=== PATIENT | female | born 1930 | race Caucasian/White ===

== ENCOUNTER 2017-08-29 10:15 | Observation (INO) ==
[2017-08-29] MEDS ORDERED: methylPREDNISolone 125 MG/2 ML VIAL IVP ONE (10:27)
[2017-08-29] MEDS ORDERED: Ipratropium/Albuterol Neb 3 ML IH ONE (10:27)
[2017-08-29 10:49] LABS: Basophils % 0.3 %; Eosinophils % 0.3 %; Hematocrit 33.9 % (35.3-44.9); Hemoglobin 11.3 g/dL (11.5-15.4); Immature Granulocytes % 0.5 % (0-4); Lymphocytes # 0.4 K/mcL (0.6-4.6); Mean Corpuscular HGB Conc 33.3 g/dL (31.6-35.5); Mean Corpuscular Hemoglobin 29.8 pg (28.0-33.3); Mean Corpuscular Volume 89.4 fL (83.0-100.0); Mean Platelet Volume 8.3 fL (9.4-12.4); Monocytes # 0.5 K/mcL (0.0-1.3); Neutrophils # 6.3 K/mcL (1.6-8.9); Platelet Count 190 K/mcL (140-400); Red Blood Count 3.79 M/mcL (3.82-4.97); Red Cell Distribution Width 13.4 % (11.5-14.5); Segmented Neutrophils % 85.9 %
[2017-08-29 10:58] LABS: Activated Partial Thrombo Time 44.6 Seconds (26.0-36.0)
[2017-08-29 11:02] LABS: BUN/Creatinine Ratio 21 (6-26); Blood Urea Nitrogen 13 mg/dL (8-23); Calcium 8.6 mg/dL (8.6-10.3); Carbon Dioxide 27 mEq/L (23-29); Chloride 97 mEq/L (98-107); Glucose 146 mg/dL (70-105); Osmolality,Calculated 277 (280-300); Potassium 3.4 mEq/L (3.5-5.1); Sodium 132 mEq/L (136-145); eGFR For African Americans > 60 (> 60); eGFR For Non-African Americans > 60 (> 60)
--- NOTE | 2017-08-29 12:04 | Emergency Department Note ---
Disposition Clinical Impression: Hypokalemia, Acute exacerbation of chronic obstructive airways disease Disposition: Admitted As Inpatient Condition: Fair Time of Disposition: 13:32 SOB HPI - General Chief Complaint: ED Shortness of Breath/Dyspnea Stated Complaint: AYAAN Time Seen by Provider: 08/29/17 10:22 Source: patient, family Limitations: no limitations Nursing Notes Reviewed: Yes Vital Signs Reviewed: Yes - History of Present Illness Patient presents to the ED with the chief complaint of shortness of breath. Onset was a few days ago, gradually worsening. States she was told she has a history of COPD due to her age, but otherwise had not smoked and does not live in a smoking household. Denies any pain or swelling in her legs. No history of DVT or PE. No history of CHF. States she takes medicine for high blood pressure, not so otherwise pretty healthy. States 3 days ago she had some nasal congestion and feels like it is moving into her chest. No fever. Mildly productive cough. No chest pain. - Related Data Home Medications Medication Instructions Recorded Confirmed Labetalol [Trandate] 150 mg PO QAM 07/22/15 08/29/17 Labetalol [Trandate] 300 mg PO QPM 07/22/15 08/29/17 Lisinopril [Zestril] 40 mg PO BID 07/22/15 08/29/17 Albuterol Sulfate [Proair Hfa] 2 puff IH Q4H PRN 03/31/16 08/29/17 Clopidogrel [Plavix] 75 mg PO DAILY 03/31/16 08/29/17 Budesonide/Formoterol 160/4.5 2 puff IH BIDR PRN 07/20/16 08/29/17 [Symbicort 160/4.5] Levothyroxine [Synthroid] 25 mcg PO 0630 07/20/16 08/29/17 Loratadine [Claritin] 10 mg PO DAILY 07/20/16 08/29/17 Potassium Chloride [Klor-Con 10] 40 meq PO DAILY 07/20/16 08/29/17 cloNIDine HCl [CloNIDine HCl] 0.1 mg PO BID 07/20/16 08/29/17 hydrALAZINE [HydrALAZINE] 20 mg PO TID 07/20/16 08/29/17 Calcium Carbonate [Calcium] 1,200 mg PO DAILY 08/29/17 08/29/17 Multivit-Min/Iron/Folic/Lutein 1 each PO DAILY 08/29/17 08/29/17 [Centrum Silver Women Tablet] amLODIPine [Norvasc] 5 mg PO BID 08/29/17 08/29/17 Previous Rx's Medication Instructions Recorded Aspirin Enteric Coated [Aspirin EC] 325 mg PO DAILY #30 tablet. 07/24/15 Atorvastatin [Lipitor] 80 mg PO HS #30 tablet 07/24/15 Allergies Allergy/AdvReac Type Severity Reaction Status Date / Time No Known Allergies Allergy Verified 08/29/17 10:17 All systems ED: reviewed and negative except as stated. Constitutional: Denies: fever ENT ED: Denies: ear pain Cardiovascular: Reports: chest pain, dyspnea on exertion Respiratory: Reports: cough, dyspnea, wheezes Genitourinary: Denies: dysuria Musculoskeletal: Denies: back pain Past Medical History - Past Medical History Attestation: Yes The following information was validated with the patient. Source: patient Medical history: Reports: COPD, CVA, hyperlipidemia, hypertension, thyroid disease Surgical history: Reports: ureteral stent, other Psychiatric history: Reports: no psych history DESKTOP SUPPORT ASSOCIATE history: Reports: no DESKTOP SUPPORT ASSOCIATE history - Social History Smoking Status: Never smoker Smokeless Tobacco Status: No Alcohol use: Reports: none Drug use: Reports: none Physical Exam - General Limitations: no limitations General appearance: alert, in no apparent distress - Head Head exam: atraumatic, normocephalic, normal inspection - Eye Eye exam: Present: normal appearance, PERRL, EOMI - Neck Neck exam: Present: normal inspection, full ROM, trachea midline - Chest Chest inspection: Present: normal inspection, symmetric chest wall rise - Respiratory Respiratory exam: Present: respiratory distress (mild), wheezes, accessory muscle use (Pursed lip breathing). Absent: normal lung sounds bilaterally, stridor - Cardiovascular Cardiovascular exam: Present: regular rate, normal rhythm, normal heart sounds - Abdominal Exam Abdominal exam: Present: soft, Non-Tender. Absent: tenderness, distention, guarding, rebound, rigidity - Extremities Exam Extremities exam: Present: normal inspection, full ROM. Absent: tenderness, pedal edema - Back Exam Back exam: Present: normal inspection, full ROM. Absent: tenderness - Neurological Exam Neurological exam: Present: alert, oriented X3 - Psychiatric Psychiatric exam: Present: normal affect, normal mood - Skin Skin exam: Present: warm, dry, intact, normal color Course Course Narrative: Patient presenting with shortness of breath. COPD versus pneumonia versus CHF. Labs, chest x-ray steroids. - Reevaluation(s) Reevaluation #1: Patient improved slightly after breathing treatments, however, still having some pursed lip breathing. We will admit to hospital service for a COPD exacerbation. Also mildly hypokalemic and hyponatremic. We will also give a dose Levaquin. Vital Signs Temperature 98.4 F 08/29/17 10:17 Pulse Rate 93 08/29/17 10:17 Respiratory Rate 22 08/29/17 10:17 Blood Pressure 186/74 08/29/17 10:17 O2 Sat by Pulse Oximetry 97 08/29/17 10:17 Temperature 97.9 F 08/29/17 14:00 Pulse Rate 77 08/29/17 14:00 Respiratory Rate 17 08/29/17 14:00 Blood Pressure 155/76 08/29/17 14:00 O2 Sat by Pulse Oximetry 93 08/29/17 14:00 Oxygen Delivery Oxygen Delivery Nasal Cannula Shortness of Breath/Dyspnea - Medical Records Medical records reviewed: Yes I reviewed the patient's medical records. - Lab Data Lab results reviewed: Yes I reviewed the patient's lab results. Result diagrams: 08/29/17 10:37 08/29/17 10:37 Lab Results 08/29/17 08/29/17 08/29/17 Range/Units 10:37 10:37 10:37 WBC 7.3 (4.3-11.1) K/mcL RBC 3.79 L (3.82-4.97) M/mcL Hgb 11.3 L (11.5-15.4) g/dL Hct 33.9 L (35.3-44.9) % MCV 89.4 (83.0-100.0) fL MCH 29.8 (28.0-33.3) pg MCHC 33.3 (31.6-35.5) g/dL RDW 13.4 (11.5-14.5) % Plt Count 190 (140-400) K/mcL MPV 8.3 L (9.4-12.4) fL Immature Gran % 0.5 (0-4) % Seg Neutrophils % 85.9 % Lymphocytes % 6.0 % Monocytes % 7.0 % Eosinophils % 0.3 % Basophils % 0.3 % Neutrophils # 6.3 (1.6-8.9) K/mcL Lymphocytes # 0.4 L (0.6-4.6) K/mcL Monocytes # 0.5 (0.0-1.3) K/mcL Eosinophils # 0.0 (0.0-0.6) K/mcL Basophils # 0.0 (0.0-0.2) K/mcL PT (9.4-12.1) Seconds INR APTT (26.0-36.0) Seconds Sodium 132 L (136-145) mEq/L Potassium 3.4 L (3.5-5.1) mEq/L Chloride 97 L (98-107) mEq/L Carbon Dioxide 27 (23-29) mEq/L BUN 13 (8-23) mg/dL Creatinine 0.62 (0.60-1.20) mg/dL Est GFR ( Amer) > 60 (> 60) Est GFR (Non-Af Amer) > 60 (> 60) BUN/Creatinine Ratio 21 (6-26) Glucose 146 H (70-105) mg/dL Calculated Osmolality 277 L (280-300) Lactic Acid 1.1 (0.5-2.2) mmol/L Calcium 8.6 (8.6-10.3) mg/dL Troponin I (< 0.04) ng/mL B-Natriuretic Peptide (Less than 100) pg/mL 08/29/17 08/29/17 08/29/17 Range/Units 10:37 10:37 10:37 WBC (4.3-11.1) K/mcL RBC (3.82-4.97) M/mcL Hgb (11.5-15.4) g/dL Hct (35.3-44.9) % MCV (83.0-100.0) fL MCH (28.0-33.3) pg MCHC (31.6-35.5) g/dL RDW (11.5-14.5) % Plt Count (140-400) K/mcL MPV (9.4-12.4) fL Immature Gran % (0-4) % Seg Neutrophils % % Lymphocytes % % Monocytes % % Eosinophils % % Basophils % % Neutrophils # (1.6-8.9) K/mcL Lymphocytes # (0.6-4.6) K/mcL Monocytes # (0.0-1.3) K/mcL Eosinophils # (0.0-0.6) K/mcL Basophils # (0.0-0.2) K/mcL PT 11.0 (9.4-12.1) Seconds INR 1.0 APTT 44.6 H (26.0-36.0) Seconds Sodium (136-145) mEq/L Potassium (3.5-5.1) mEq/L Chloride (98-107) mEq/L Carbon Dioxide (23-29) mEq/L BUN (8-23) mg/dL Creatinine (0.60-1.20) mg/dL Est GFR ( Amer) (> 60) Est GFR (Non-Af Amer) (> 60) BUN/Creatinine Ratio (6-26) Glucose (70-105) mg/dL Calculated Osmolality (280-300) Lactic Acid (0.5-2.2) mmol/L Calcium (8.6-10.3) mg/dL Troponin I < 0.03 (< 0.04) ng/mL B-Natriuretic Peptide 191 H (Less than 100) pg/mL - Radiology Data Radiology results reviewed: Yes I reviewed the patient's radiology results. - EKG Data EKG attestation: Yes I reviewed and interpreted this EKG. EKG results narrative: Sinus rhythm, rate 82, MI interval 146, QRS 11, QTC 414, normal axis, no acute ischemic changes Attestation Statement - Attestation Attestation: I examined this patient and my medical decision-making was reviewed with the Resident Physician, Dr. Woods. I agree with the documented findings, disposition and treatment plan as described except to the extent set forth below. Patient is an 86-year-old white female with history of COPD who presents to the emergency department with a 2 day history of gradually worsening upper respiratory symptoms cough and which is now productive of yellowish sputum and complains of some shortness of breath. Patient is having pursed lip breathing at bedside with increased work of breathing but maintaining O2 sats at this time. Patient denies any chest pain pressure or heaviness, no history of CHF, no lower extremity edema or pain, no posttussive emesis. Patient denies any other associated symptoms at this time. I agree with patient's physical exam findings as documented. Vital signs are stable. Patient was placed on environmental health physician and continuous pulse ox EKG was obtained which was negative for any acute ischemia. Patient was started on DuoNeb aerosol, IV steroids and labs were drawn and sent. Chest x-ray was obtained. Patient reports feeling better after breathing treatment by still having personally breathing and increased work of breathing. Patient with a course breath sounds throughout and expiratory wheeze appreciated in the bases. Clinically suspicious of pneumonia that is not yet evident on chest x-ray as today's imaging is unremarkable. The patient would benefit from ongoing breathing treatments, and we will cover with IV Levaquin at this time. Patient' s labs are otherwise unremarkable. Discussed the case with the hospitalist who accepts the patient for admission.
[2017-08-29] MEDS ORDERED: Levofloxacin 750 MG/150 ML 750 MG/150 ML BAG IVPB ONE (13:16)
[2017-08-29] MEDS ORDERED: Naloxone 0.4 MG/ML INJ IVP PRN (14:31)
--- NOTE | 2017-08-29 14:59 | Internal Med History&Physical ---
Date of Encounter: 08/29/17 Time of Encounter: 14:56 Assessment and Plan (1) Acute exacerbation of chronic obstructive airways disease Current visit: Yes Status: Chronic Acute exacerbation of COPD. Presented today with shortness of breath with an onset of 2 days ago and is getting progressively worse. Continues to have prior to her wheezing and hypoxia. He is in moderate distress requiring 2 L nasal cannula. Does not appear to be an infective process, no leukocytosis noted. Rapid influenza negative Duonebs Q4hrs rich Albuterol every 2 when necessary for breakthrough wheezing and shortness of breath Solu-Medrol 40 mg IV every 6 hours respiratory support per nasal cannula with goal to maintain SPO2 greater than 92 % Azithromycin for empiric antibiotic coverage, de-escalate as clinically appropriate Continuous telemetry, continuous ST monitoring CBC DD and BMP in the a.m. (2) Hypoxia Current visit: Yes Status: Acute Continues to be hypoxic requiring O2 support per NC. Hypoxia secondary to COPD exacerbation. She remains stable and in no distress, resting comfortably on 2lnc. (3) HLD (hyperlipidemia) Current visit: Yes Status: Acute Qualifiers: Hyperlipidemia type: unspecified Qualified Code(s): E78.5 - Hyperlipidemia , unspecified (4) HTN (hypertension) Current visit: Yes Status: Acute Stable, resume home blood pressure medications Qualifiers: Hypertension type: essential hypertension Qualified Code(s): I10 - Essential (primary) hypertension (5) DVT prophylaxis Current visit: Yes Status: Acute Heparin 5000 units subcutaneous twice a day Internal Medicine - H&P: HPI Chief complaint: Dyspnea Admitted From: Home Plans for Post Hospital Care: Home History of present illness: Ms. Brothers is a 86 year old female with past medical history of COPD, CVA, HLD , HTN and hypothyroidism. Presents with ongoing shortness of breath which began 2 days ago and getting progressively worse since. The patient is not on any oxygen at home. She was diagnosed with COPD on 04/13 with PFTs indicating moderate obstructive ventilatory impairment without significant bronchodilator response and air trapping. She denies any chest pain, cough, fever, chills, nausea vomiting diarrhea, muscle or joint aches, A extremity swelling or pain. Workup thus far unremarkable. Chest x-ray no acute pulmonary process. She is being admitted for further workup and evaluation as she requires oxygen support due to hypoxia. Past Med Surg Social Fam HX - Past Medical History Medical history: COPD, CVA, hyperlipidemia, hypertension, thyroid disease Psychiatric history: no psych history - Past Surgical History Surgical History: ureteral stent - Social History Smoking Status: Never smoker Smokeless Tobacco Status: No Alcohol use: none Drug use: none - Family History Mother Adopted: No Family Member Ethnicity: Non- Living Status: Hx Family Cardiac Disorders: Yes (CHF) Hx Family Respiratory Disorders: No Hx Family Cancer: No Hx Family GI Disorders: No Hx Family Endocrine Disorder: No Hx Family Neuromuscular Disorders: No Hx Family Neurologic Disorders: No Hx Family HEENT Disorders: No Hx Family Autoimmune Disorders: No Father Adopted: No Family Member Ethnicity: Non- Living Status: Hx Family Cardiac Disorders: Yes (CHF) Hx Family Respiratory Disorders: No Hx Family Cancer: No Hx Family GI Disorders: No Hx Family Endocrine Disorder: No Hx Family Neuromuscular Disorders: No Hx Family Neurologic Disorders: No Hx Family HEENT Disorders: No Hx Family Autoimmune Disorders: No Internal Medicine - H&P: Meds Labetalol [Trandate] 150 mg PO QAM 07/22/15 [History] Labetalol [Trandate] 300 mg PO QPM 07/22/15 [History] Lisinopril [Zestril] 40 mg PO BID 07/22/15 [History] Aspirin Enteric Coated [Aspirin EC] 325 mg PO DAILY #30 tablet. 07/24/15 [Rx] Atorvastatin [Lipitor] 80 mg PO HS #30 tablet 07/24/15 [Rx] Albuterol Sulfate [Proair Hfa] 2 puff IH Q4H PRN 03/31/16 [History] Clopidogrel [Plavix] 75 mg PO DAILY 03/31/16 [History] Budesonide/Formoterol 160/4.5 [Symbicort 160/4.5] 2 puff IH BIDR PRN 07/20/16 [ History] Levothyroxine [Synthroid] 25 mcg PO 0630 07/20/16 [History] Loratadine [Claritin] 10 mg PO DAILY 07/20/16 [History] Potassium Chloride [Klor-Con 10] 40 meq PO DAILY 07/20/16 [History] cloNIDine HCl [CloNIDine HCl] 0.1 mg PO BID 07/20/16 [History] hydrALAZINE [HydrALAZINE] 20 mg PO TID 07/20/16 [History] Calcium Carbonate [Calcium] 1,200 mg PO DAILY 08/29/17 [History] Multivit-Min/Iron/Folic/Lutein [Centrum Silver Women Tablet] 1 each PO DAILY 09/15 [History] amLODIPine [Norvasc] 5 mg PO BID 08/29/17 [History] 3 Allergy/AdvReac Type Severity Reaction Status Date / Time No Known Allergies Allergy Verified 08/29/17 10:17 All Systems PM: A 10-system review of systems was performed and is negative for pertinent findings except as documented above in the HPI. Review of systems: REVIEW OF SYSTEMS GENERAL: Negative for any nausea, vomiting, fevers, chills, or weight loss. NEUROLOGIC: Negative for any blurry vision, blind spots, double vision, facial asymmetry, dysphagia, dysarthria, hemiparesis, hemisensory deficits, vertigo, ataxia. HEENT: Negative for any head trauma, neck trauma, neck stiffness, photophobia, phonophobia, sinusitis, rhinitis. CARDIAC: Negative for any chest pain, peripheral edema. Positive for orthopnea , dyspnea which is exacerbated by exertion PULMONARY: Positive for any shortness of breath, wheezing, COPD GASTROINTESTINAL: Negative for any abdominal pain, nausea, vomiting, bright red blood per rectum, melena. GENITOURINARY: Negative for any dysuria, hematuria, incontinence. INTEGUMENTARY: Negative for any rashes, cuts, insect bites. RHEUMATOLOGIC: Negative for any joint pains, photosensitive rashes, history of vasculitis or kidney problems. HEMATOLOGIC: Negative for any abnormal bruising, frequent infections or bleeding. - Constitutional Vitals: Temp Pulse Resp BP Pulse Ox 97.9 F 77 17 155/76 93 08/29/17 14:00 08/29/17 14:00 08/29/17 14:00 08/29/17 14:08/29/17 14:00 General appearance: Present: cooperative, A&O X 3, no acute distress, answers questions appropriately Exam: PHYSICAL EXAMINATION: GENERAL: The patient is a well-developed, well-nourished male in no apparent distress. He is alert and oriented x3. VITAL SIGNS: Temperature 98.4, pulse 93, respiratory rate 22 and 97% on 2 L nasal cannula, blood pressure 123/60 HEENT: Head is normocephalic and atraumatic. Extraocular muscles are intact. Pupils are equal, round, and reactive to light and accommodation. Nares appeared normal. Mouth is well hydrated and without lesions. Mucous membranes are moist. Posterior pharynx clear of any exudate or lesions. NECK: Supple. No carotid bruits. No lymphadenopathy or thyromegaly. LUNGS: Scattered rhonchi, crackles and wheezing noted throughout anterior posterior bilateral lobes. Patient is tachypneic in mild respiratory requiring 2 L nasal cannula to maintain O2 saturations. No accessory muscle usage. HEART: Regular rate and rhythm without murmur. ABDOMEN: Soft, nontender, and nondistended. Positive bowel sounds. No hepatosplenomegaly was noted. EXTREMITIES: Without any cyanosis, clubbing, rash, lesions or edema. NEUROLOGIC: Cranial nerves II through XII are grossly intact. PSYCHIATRIC: Flat affect, but denies suicidal or homicidal ideations. SKIN: No ulceration or induration present. Internal Med - H&P Results - Labs CBC & Chem 7: 08/29/17 10:37 08/29/17 10:37 - EKG Data -: EKG Interpreted by Myself EKG shows normal: sinus rhythm Rate: normal - EKG Data Prior EKG available for review: yes When compared to previous EKG: there are significant changes Interpretation IM: normal EKG EKG comments: Normal sinus rhythm rate of 82, normal axis with no acute ischemic changes. 08/29/17 16:51 - Diagnostic Studies Chest x-ray Status: image reviewed by me Additional comments: No acute cardiopulmonary process
[2017-08-29] MEDS ORDERED: Azithromycin 500 MG in D5% in Water 250 ML IVPB SCH (17:00)
[2017-08-29] MEDS: hydrALAZINE 10 MG TABLET PO SCH ×2 (18:14→20:54)
[2017-08-29] MEDS: MethylPREDNISolone 40 MG/ML VIAL IVP SCH ×2 (18:17→23:06)
[2017-08-29] MEDS: *HR* Heparin 5,000 UNIT/ML VIAL SQ SCH (18:18)
[2017-08-29] MEDS: Ipratropium/Albuterol Neb 3 ML IH SCH ×3 (18:30→23:31)
[2017-08-29] MEDS: cloNIDine HCl 0.1 MG TABLET PO SCH (20:54)
[2017-08-29] MEDS: Lisinopril 20 MG TABLET PO SCH (20:54)
[2017-08-29] MEDS: amLODIPine 5 MG TABLET PO SCH (20:54)
[2017-08-30] MEDS: Ipratropium/Albuterol Neb 3 ML IH SCH ×5 (03:46→20:03)
[2017-08-30 05:02] LABS: Hematocrit 30.4 % (35.3-44.9); Hemoglobin 10.2 g/dL (11.5-15.4); Immature Granulocytes % 1.1 % (0-4); Lymphocytes # 0.5 K/mcL (0.6-4.6); Lymphocytes % 8.1 %; Mean Corpuscular HGB Conc 33.6 g/dL (31.6-35.5); Mean Corpuscular Hemoglobin 29.5 pg (28.0-33.3); Mean Corpuscular Volume 87.9 fL (83.0-100.0); Mean Platelet Volume 8.8 fL (9.4-12.4); Monocytes # 0.1 K/mcL (0.0-1.3); Monocytes % 1.4 %; Neutrophils # 5.9 K/mcL (1.6-8.9); Platelet Count 211 K/mcL (140-400); Red Blood Count 3.46 M/mcL (3.82-4.97); Red Cell Distribution Width 13.1 % (11.5-14.5); Segmented Neutrophils % 89.4 %
[2017-08-30 05:16] LABS: BUN/Creatinine Ratio 23 (6-26); Blood Urea Nitrogen 16 mg/dL (8-23); Calcium 8.7 mg/dL (8.6-10.3); Carbon Dioxide 25 mEq/L (23-29); Chloride 97 mEq/L (98-107); Glucose 201 mg/dL (70-105); Osmolality,Calculated 275 (280-300); Potassium 3.9 mEq/L (3.5-5.1); Sodium 129 mEq/L (136-145); eGFR For African Americans > 60 (> 60); eGFR For Non-African Americans > 60 (> 60)
[2017-08-30] MEDS: *HR* Heparin 5,000 UNIT/ML VIAL SQ SCH ×2 (05:26→18:34)
[2017-08-30] MEDS: Levothyroxine 25 MCG TABLET PO SCH (05:26)
[2017-08-30] MEDS: MethylPREDNISolone 40 MG/ML VIAL IVP SCH ×4 (05:26→23:43)
[2017-08-30] MEDS: Loratadine 10 MG TABLET PO SCH (08:10)
[2017-08-30] MEDS: Lisinopril 20 MG TABLET PO SCH ×2 (08:10→21:28)
[2017-08-30] MEDS: cloNIDine HCl 0.1 MG TABLET PO SCH ×2 (08:11→21:29)
[2017-08-30] MEDS: Aspirin Enteric Coated 325 MG Tablet PO SCH (08:11)
[2017-08-30] MEDS: hydrALAZINE 10 MG TABLET PO SCH ×3 (08:11→21:28)
[2017-08-30] MEDS: amLODIPine 5 MG TABLET PO SCH ×2 (08:11→21:29)
[2017-08-30] MEDS: Multivit/Ca/Min/Fe/FA 1 TAB TABLET PO SCH (08:11)
--- NOTE | 2017-08-30 16:44 | Electrocardiograph Report ---
[place] [id number] Test Date: 2017-08-29 Pat Name: Nargis Brothers Department: 103 Room: 2A35 Gender: F Pca: ANTOINETTE : 1930 Requested By: Filiberto Woods Order Number: [id number] Reading MD: Tavo Delgado Measurements Intervals [place] Rate: 82 P: 97 NV: 146 QRS: 42 QRSD: 101 T: 31 QT: 376 QTc: 414 Interpretive Statements SINUS RHYTHM WITH FREQUENT SUPRAVENTRICULAR PREMATURE COMPLEXES ABNORMAL RHYTHM ECG Electronically Signed On 08-30-2017 16:43:28 EST by Tavo Delgado
--- NOTE | 2017-08-30 17:38 | Internal Med Progress Note ---
Date of Encounter: 08/30/17 Time of Encounter: 11:00 - Assessment and plan (1) Acute exacerbation of chronic obstructive airways disease Current Visit: Yes Status: Chronic Assessment and plan: -Patient continues to has expiratory wheezes this morning -Will continue duo nebs in addition to IV azithromycin. -IV Solu-Medrol has been D escalated to oral prednisone. (2) HTN (hypertension) Current Visit: No Status: Chronic Assessment and plan: -Controlled; continue home medications. Qualifiers: Hypertension type: essential hypertension Qualified Code(s): I10 - Essential (primary) hypertension (3) Hypothyroidism Current Visit: No Status: Chronic Assessment and plan: -Continue home dose of levothyroxine. Qualifiers: Hypothyroidism type: unspecified Qualified Code(s): E03.9 - Hypothyroidism , unspecified (4) Hyperlipidemia Current Visit: No Status: Chronic Assessment and plan: -Continue statin. Qualifiers: Hyperlipidemia type: unspecified Qualified Code(s): E78.5 - Hyperlipidemia , unspecified (5) DVT prophylaxis Current Visit: Yes Status: Acute Assessment and plan: -Heparin subcutaneous. - Subjective Interval history: Patient continues to have expiratory wheezes this morning due to COPD exacerbation - Constitutional Vitals: Temp Pulse Resp BP Pulse Ox 97.6 F 71 16 165/67 92 08/30/17 14:40 08/30/17 14:40 08/30/17 15:39 08/30/17 14:40 08/30/17 15:39 General appearance: Present: cooperative, A&O X 3, no acute distress, answers questions appropriately - Respiratory Respiratory exam: Present: wheezes (Bilateral expiratory wheezes) - Cardiovascular Cardiovascular exam: Present: RRR, +S1, +S2. Absent: diastolic murmur, gallop, rubs, systolic murmur Internal Medicine: Result - Labs CBC & Chem 7: 08/30/17 04:06 08/30/17 04:06 Labs: Short CBC 08/30/17 Range/Units 04:06 WBC 6.5 (4.3-11.1) K/mcL Hgb 10.2 L (11.5-15.4) g/dL Hct 30.4 L (35.3-44.9) % Plt Count 211 (140-400) K/mcL Neutrophils # 5.9 (1.6-8.9) K/mcL BMP 08/30/17 04:06 Sodium 129 L Potassium 3.9 Chloride 97 L Carbon Dioxide 25 BUN 16 Creatinine 0.71 Glucose 201 H Calcium 8.7 Cardiac Enzymes 08/29/17 Range/Units 20:41 Troponin I < 0.03 (< 0.04) ng/mL - ABG Interpretation ABG results: PT/INR, D-dimer PT 11.0 Seconds (9.4-12.1) 08/29/17 10:37 Consult Discharge Plan - Plan Referrals: Syed,Osmar Prakash MD [Primary Care Provider] -
[2017-08-30] MEDS: Azithromycin 250 MG TABLET PO SCH (18:33)
[2017-08-31] MEDS: Ipratropium/Albuterol Neb 3 ML IH SCH ×5 (00:01→15:19)
[2017-08-31] MEDS: MethylPREDNISolone 40 MG/ML VIAL IVP SCH ×2 (05:32→12:05)
[2017-08-31] MEDS: *HR* Heparin 5,000 UNIT/ML VIAL SQ SCH (05:32)
[2017-08-31] MEDS: Levothyroxine 25 MCG TABLET PO SCH (05:32)
[2017-08-31] MEDS: Multivit/Ca/Min/Fe/FA 1 TAB TABLET PO SCH (09:03)
[2017-08-31] MEDS: Lisinopril 20 MG TABLET PO SCH (09:03)
[2017-08-31] MEDS: Aspirin Enteric Coated 325 MG Tablet PO SCH (09:04)
[2017-08-31] MEDS: Loratadine 10 MG TABLET PO SCH (09:04)
[2017-08-31] MEDS: amLODIPine 5 MG TABLET PO SCH (09:04)
[2017-08-31] MEDS: cloNIDine HCl 0.1 MG TABLET PO SCH (09:04)
[2017-08-31] MEDS: hydrALAZINE 10 MG TABLET PO SCH ×2 (09:04→16:49)
[2017-08-31 09:43] LABS: Basophils % 0.1 %; Hemoglobin 11.1 g/dL (11.5-15.4); Immature Granulocytes % 1.5 % (0-4); Lymphocytes # 0.5 K/mcL (0.6-4.6); Lymphocytes % 4.4 %; Mean Corpuscular HGB Conc 32.6 g/dL (31.6-35.5); Mean Corpuscular Volume 88.8 fL (83.0-100.0); Mean Platelet Volume 8.7 fL (9.4-12.4); Monocytes # 0.2 K/mcL (0.0-1.3); Monocytes % 2.3 %; Neutrophils # 9.5 K/mcL (1.6-8.9); Platelet Count 311 K/mcL (140-400); Red Blood Count 3.83 M/mcL (3.82-4.97); Red Cell Distribution Width 13.1 % (11.5-14.5); Segmented Neutrophils % 91.7 %
[2017-08-31 09:47] LABS: BUN/Creatinine Ratio 28 (6-26); Blood Urea Nitrogen 23 mg/dL (8-23); Calcium 8.8 mg/dL (8.6-10.3); Carbon Dioxide 25 mEq/L (23-29); Chloride 98 mEq/L (98-107); Glucose 295 mg/dL (70-105); Osmolality,Calculated 289 (280-300); Sodium 132 mEq/L (136-145); eGFR For African Americans > 60 (> 60); eGFR For Non-African Americans > 60 (> 60)
[2017-08-31 16:16] VITALS: BP 157/63
--- NOTE | 2017-08-31 16:34 | Discharge Summary ---
Date of Encounter: 08/31/17 Time of Encounter: 11:00 - Discharge Diagnosis (1) Acute exacerbation of chronic obstructive airways disease Priority: Primary Status: Chronic (2) HTN (hypertension) Priority: Secondary Status: Chronic Qualifiers: Hypertension type: essential hypertension Qualified Code(s): I10 - Essential (primary) hypertension (3) Hypothyroidism Priority: Secondary Status: Chronic Qualifiers: Hypothyroidism type: unspecified Qualified Code(s): E03.9 - Hypothyroidism , unspecified (4) Hyperlipidemia Priority: Secondary Status: Chronic Qualifiers: Hyperlipidemia type: unspecified Qualified Code(s): E78.5 - Hyperlipidemia , unspecified - Discharge Medications Prescriptions: Ipratropium/Albuterol Neb [Duoneb] 3 ml IH [id number] #30 inhsol Azithromycin [Zithromax Tri-Joey] 500 mg PO DAILY #5 tablet predniSONE [PredniSONE] 40 mg PO DAILY #10 tablet Home Medications: Labetalol [Trandate] 150 mg PO QAM 07/22/15 [History] Labetalol [Trandate] 300 mg PO QPM 07/22/15 [History] Lisinopril [Zestril] 40 mg PO BID 07/22/15 [History] Aspirin Enteric Coated [Aspirin EC] 325 mg PO DAILY #30 tablet. 07/24/15 [Rx] Atorvastatin [Lipitor] 80 mg PO HS #30 tablet 07/24/15 [Rx] Albuterol Sulfate [Proair Hfa] 2 puff IH Q4H PRN 03/31/16 [History] Clopidogrel [Plavix] 75 mg PO DAILY 03/31/16 [History] Budesonide/Formoterol 160/4.5 [Symbicort 160/4.5] 2 puff IH BIDR PRN 07/20/16 [ History] Levothyroxine [Synthroid] 25 mcg PO 0630 07/20/16 [History] Loratadine [Claritin] 10 mg PO DAILY 07/20/16 [History] Potassium Chloride [Klor-Con 10] 40 meq PO DAILY 07/20/16 [History] cloNIDine HCl [CloNIDine HCl] 0.1 mg PO BID 07/20/16 [History] hydrALAZINE [HydrALAZINE] 20 mg PO TID 07/20/16 [History] Calcium Carbonate [Calcium] 1,200 mg PO DAILY 08/29/17 [History] Multivit-Min/Iron/Folic/Lutein [Centrum Silver Women Tablet] 1 each PO DAILY 09/15 [History] amLODIPine [Norvasc] 5 mg PO BID 08/29/17 [History] Azithromycin [Zithromax Tri-Joey] 500 mg PO DAILY #5 tablet 08/31/17 [Rx] Ipratropium/Albuterol Neb [Duoneb] 3 ml IH [id number] #30 inhsol 08/31/17 [Rx] predniSONE [PredniSONE] 40 mg PO DAILY #10 tablet 08/31/17 [Rx] Allergies/Adverse Reactions: 3 Allergy/AdvReac Type Severity Reaction Status Date / Time No Known Allergies Allergy Verified 08/29/17 10:17 Date of admission: 08/29/17 13:05 Primary care physician: Osmar Lynch MD Consults: 08/29/17 14:48 Consult to Pastoral Services [CONS] Routine Comment: - Patient Status Disposition: Home, Self-Care Condition: Fair - Discharge Instructions Follow Up With: Osmar Lynch MD [Primary Care Provider] - (PCP want patients to call for an appt. when patient get home...) Hospital course: Patient is an 86-year-old female with past medical history significant for COPD , CVA, HLD, HTN and hypothyroidism who presented to the ER on 08/29/17 due to shortness of breath. Patient reported that shortness of breath had been occurring for approximately 2 days prior to admission and progressively got worse. She was diagnosed with COPD on 04/13 with PFTs indicating moderate obstructive ventilatory impairment without significant bronchodilator response and air trapping. In the ER, chest x-ray showed no acute pulmonary process. Patient was admitted for further workup and evaluation as she requires oxygen support due to hypoxia. During patients hospital stay, she was determined to have COPD exacerbation and her shortness of breath and wheezing resolved after treatment of IV azithromycin in addition to IV Solu-Medrol and duo nebs. She will be discharged to continue a 5 day course of prednisone and azithromycin in addition to DuoNebs and follow-up of her primary care provider. - Time Spent with Patient Total time spent providing and/or coordinating discharge services: Less than 30 minutes - Constitutional Vitals: Temp Pulse Resp BP Pulse Ox 98.1 F 78 16 157/63 93 08/31/17 16:15 08/31/17 16:15 08/31/17 16:15 08/31/17 16:15 08/31/17 16:15 General appearance: Present: cooperative, A&O X 3, no acute distress, answers questions appropriately - Respiratory Respiratory exam: Present: CTAB. Absent: accessory muscle use, rales, rhonchi, wheezes - Cardiovascular Cardiovascular exam: Present: RRR, +S1, +S2. Absent: diastolic murmur, gallop, rubs, systolic murmur
[2017-08-31] MEDS: Azithromycin 250 MG TABLET PO SCH (16:49)
[2017-08-31] MEDS ORDERED: predniSONE 20 MG TABLET PO SCH (18:00)
== END 2017-08-31 18:01 | disposition home or self-care (01) ==
LOC: EMEROO 10:15 → 2ANU 10:15 → SUATTDRO 13:05 → 2ANU 15:02
PROVIDERS: ADMIT Nurse Practitioner; ATTEND Hospitalist

== ENCOUNTER 2019-07-31 14:02 | Observation (INO) ==
[2019-07-31] MEDS ORDERED: methylPREDNISolone 125 MG/2 ML VIAL IVP ONE (14:40)
[2019-07-31] MEDS ORDERED: Ondansetron 4 MG/2 ML VIAL IVP ONE (14:41)
[2019-07-31 15:26] LABS: Alanine Aminotransferase 27 Units/L (7-52); Albumin 4.1 g/dL (3.5-5.7); Albumin/Globulin Ratio 1.6 (1.1-2.2); Alkaline Phosphatase 80 Units/L (34-104); Aspartate Amino Transferase 24 Units/L (13-39); BUN/Creatinine Ratio 24 (6-26); Bilirubin,Total 0.5 mg/dL (0.3-1.0); Blood Urea Nitrogen 13 mg/dL (8-23); Calcium 9.1 mg/dL (8.6-10.3); Carbon Dioxide 27 mEq/L (23-29); Chloride 87 mEq/L (98-107); Globulin 2.5 g/dL (2.4-3.5); Glucose 113 mg/dL (70-105); Osmolality,Calculated 257 (280-300); Potassium 3.4 mEq/L (3.5-5.1); Sodium 123 mEq/L (136-145); Total Protein 6.6 g/dL (6.4-8.9); Troponin I < 0.03 ng/mL (< 0.04); eGFR For African Americans > 60 (> 60); eGFR For Non-African Americans > 60 (> 60)
[2019-07-31] MEDS ORDERED: Ipratropium/Albuterol Neb 3 ML IH ONE (15:45)
[2019-07-31 16:00] LABS: Basophils % 0.3 %; Eosinophils % 0.3 %; Hematocrit 34.6 % (35.3-44.9); Hemoglobin 12.3 g/dL (11.5-15.4); Immature Granulocytes % 0.7 % (0-4); Lymphocytes % 11.2 %; Mean Corpuscular HGB Conc 35.5 g/dL (31.6-35.5); Mean Corpuscular Hemoglobin 29.5 pg (28.0-33.3); Mean Platelet Volume 8.3 fL (9.4-12.4); Monocytes # 0.7 K/mcL (0.0-1.3); Monocytes % 7.8 %; Neutrophils # 7.4 K/mcL (1.6-8.9); Platelet Count 340 K/mcL (140-400); Red Blood Count 4.17 M/mcL (3.82-4.97); Red Cell Distribution Width 13.1 % (11.5-14.5); Segmented Neutrophils % 79.7 %; White Blood Count 9.2 K/mcL (4.3-11.1)
[2019-07-31] MEDS: 0.9 % Sodium Chloride 1,000 ML IVC SCH ×2 (18:22→23:26)
[2019-07-31] MEDS ORDERED: Naloxone 0.4 MG/ML INJ IVP PRN (19:44)
[2019-07-31] MEDS ORDERED: Acetaminophen 325 MG TABLET PO PRN (19:51)
[2019-07-31] MEDS ORDERED: Ondansetron 4 MG/2 ML VIAL IVP PRN (19:51)
[2019-07-31] MEDS: Azithromycin 500 MG in 0.9 % Sodium Chloride 250 ML IVPB SCH (22:18)
[2019-07-31] MEDS: hydrALAZINE 10 MG TABLET PO SCH (23:00)
[2019-07-31] MEDS: amLODIPine 5 MG TABLET PO SCH (23:00)
[2019-07-31] MEDS: *HR* Heparin 5,000 UNIT/ML VIAL SQ SCH (23:03)
[2019-08-01 05:28] LABS: Hematocrit 30.7 % (35.3-44.9); Immature Granulocytes % 0.7 % (0-4); Lymphocytes # 0.4 K/mcL (0.6-4.6); Lymphocytes % 6.8 %; Mean Corpuscular HGB Conc 33.9 g/dL (31.6-35.5); Mean Corpuscular Hemoglobin 29.6 pg (28.0-33.3); Mean Corpuscular Volume 87.5 fL (83.0-100.0); Mean Platelet Volume 8.7 fL (9.4-12.4); Monocytes # 0.3 K/mcL (0.0-1.3); Monocytes % 4.5 %; Neutrophils # 5.1 K/mcL (1.6-8.9); Platelet Count 303 K/mcL (140-400); Red Blood Count 3.51 M/mcL (3.82-4.97); Red Cell Distribution Width 13.1 % (11.5-14.5); White Blood Count 5.7 K/mcL (4.3-11.1)
[2019-08-01 05:29] LABS: Hemoglobin 10.4 g/dL (11.5-15.4)
[2019-08-01 05:49] LABS: BUN/Creatinine Ratio 19 (6-26); Blood Urea Nitrogen 18 mg/dL (8-23); Carbon Dioxide 28 mEq/L (23-29); Chloride 92 mEq/L (98-107); Glucose 142 mg/dL (70-105); Magnesium 2.4 mg/dL (1.6-2.6); Osmolality,Calculated 268 (280-300); Potassium 3.6 mEq/L (3.5-5.1); Sodium 127 mEq/L (136-145); eGFR For African Americans > 60 (> 60); eGFR For Non-African Americans 55 (> 60)
[2019-08-01] MEDS: *HR* Heparin 5,000 UNIT/ML VIAL SQ SCH ×3 (06:14→22:04)
[2019-08-01] MEDS: Levothyroxine 25 MCG TABLET PO SCH (06:14)
[2019-08-01] MEDS: hydrALAZINE 10 MG TABLET PO SCH ×3 (08:01→22:02)
[2019-08-01] MEDS: Loratadine 10 MG TABLET PO SCH (08:02)
[2019-08-01] MEDS: Multivit/Ca/Min/Fe/FA 1 TAB TABLET PO SCH (08:02)
[2019-08-01] MEDS: 0.9 % Sodium Chloride 1,000 ML IVC SCH ×2 (08:02→20:04)
[2019-08-01] MEDS: amLODIPine 5 MG TABLET PO SCH ×2 (08:02→22:03)
[2019-08-01] MEDS ORDERED: Furosemide 40 MG/4 ML VIAL IVP ONE (08:33)
[2019-08-01] MEDS ORDERED: MethylPREDNISolone 40 MG/ML VIAL IVP SCH (09:00)
[2019-08-01] MEDS: Ipratropium/Albuterol Neb 3 ML IH SCH ×2 (15:20→21:54)
[2019-08-01] MEDS: Budesonide Neb 0.5 MG/2 ML IH SCH (21:53)
[2019-08-01] MEDS: Azithromycin 500 MG in 0.9 % Sodium Chloride 250 ML IVPB SCH (22:02)
[2019-08-02] MEDS: Ipratropium/Albuterol Neb 3 ML IH SCH ×4 (03:59→22:41)
[2019-08-02] MEDS: *HR* Heparin 5,000 UNIT/ML VIAL SQ SCH ×3 (06:24→21:56)
[2019-08-02] MEDS: Levothyroxine 25 MCG TABLET PO SCH (06:24)
[2019-08-02 06:54] LABS: Basophils % 0.1 %; Eosinophils % 0.2 %; Hematocrit 30.7 % (35.3-44.9); Hemoglobin 10.1 g/dL (11.5-15.4); Immature Granulocytes % 0.4 % (0-4); Lymphocytes # 0.8 K/mcL (0.6-4.6); Lymphocytes % 8.8 %; Mean Corpuscular HGB Conc 32.9 g/dL (31.6-35.5); Mean Corpuscular Hemoglobin 29.4 pg (28.0-33.3); Mean Corpuscular Volume 89.2 fL (83.0-100.0); Mean Platelet Volume 8.2 fL (9.4-12.4); Monocytes # 0.8 K/mcL (0.0-1.3); Monocytes % 8.9 %; Neutrophils # 7.5 K/mcL (1.6-8.9); Platelet Count 269 K/mcL (140-400); Red Blood Count 3.44 M/mcL (3.82-4.97); Red Cell Distribution Width 13.2 % (11.5-14.5); Segmented Neutrophils % 81.6 %
[2019-08-02 07:14] LABS: White Blood Count 9.2 K/mcL (4.3-11.1)
[2019-08-02 07:16] LABS: BUN/Creatinine Ratio 23 (6-26); Blood Urea Nitrogen 13 mg/dL (8-23); Calcium 7.7 mg/dL (8.6-10.3); Carbon Dioxide 29 mEq/L (23-29); Chloride 97 mEq/L (98-107); Glucose 101 mg/dL (70-105); Magnesium 1.8 mg/dL (1.6-2.6); Osmolality,Calculated 278 (280-300); Potassium 2.8 mEq/L (3.5-5.1); Sodium 134 mEq/L (136-145); eGFR For African Americans > 60 (> 60); eGFR For Non-African Americans > 60 (> 60)
[2019-08-02 07:26] LABS: Thyroid Stimulating Hormone 2.102 mcIU/mL (0.340-5.600)
[2019-08-02] MEDS ORDERED: Potassium Chloride 20 MEQ, Lidocaine 1% 2 ML in 0.9 % Sodium Chloride 250 ML IVPB ONE (08:00)
[2019-08-02] MEDS: Loratadine 10 MG TABLET PO SCH (08:24)
[2019-08-02] MEDS: amLODIPine 5 MG TABLET PO SCH ×2 (08:24→21:53)
[2019-08-02] MEDS: Multivit/Ca/Min/Fe/FA 1 TAB TABLET PO SCH (08:24)
[2019-08-02] MEDS: hydrALAZINE 10 MG TABLET PO SCH ×3 (08:25→21:52)
[2019-08-02] MEDS: Budesonide Neb 0.5 MG/2 ML IH SCH ×2 (10:29→22:40)
[2019-08-02] MEDS: predniSONE 20 MG TABLET PO SCH (10:58)
[2019-08-02 16:47] LABS: Adenovirus F 40/41 PCR Not detected (Not detect); Astrovirus PCR Not detected (Not detect); C.difficile Toxin A/B Gene PCR Not detected (Not detect); Campylobacter by PCR Not detected (Not detect); Cryptosporidium by PCR Not detected (Not detect); Cyclospora cayetanensis PCR Not detected (Not detect); E. coli O157 by PCR Not detected (Not detect); Entamoeba histolytica PCR Not detected (Not detect); Enteroaggregative E.coli(EAEC) Not detected (Not detect); Enteropathogenic E.coli(EPEC) Not detected (Not detect); Enterotoxigenic E.coli (ETEC) Not detected (Not detect); Giardia lamblia PCR Not detected (Not detect); Norovirus GI/GII PCR Not detected (Not detect); Plesiomonas shigelloides PCR Not detected (Not detect); Rotavirus A PCR Not detected (Not detect); Salmonella PCR Not detected (Not detect); Sapovirus PCR Not detected (Not detect); Shig/EnteroinvasiveE coli EIEC Not detected (Not detect); Shigalike tox-prod E coli STEC Not detected (Not detect); Vibrio PCR Not detected (Not detect); Vibrio cholerae PCR Not detected (Not detect); Yersinia enterocolitica PCR Not detected (Not detect)
[2019-08-02] MEDS: Azithromycin 500 MG in 0.9 % Sodium Chloride 250 ML IVPB SCH (21:52)
[2019-08-02] MEDS: Artificial Tears SOLN 15 ML BOTTLE RIGHT EYE SCH (21:53)
[2019-08-02] MEDS: PrednisoLONE Acetate 1% Opth 5 ML BOTTLE RIGHT EYE SCH (21:53)
[2019-08-03] MEDS: Ipratropium/Albuterol Neb 3 ML IH SCH ×3 (04:04→15:38)
[2019-08-03 05:08] LABS: Basophils % 0.3 %; Hematocrit 30.9 % (35.3-44.9); Hemoglobin 10.1 g/dL (11.5-15.4); Immature Granulocytes % 0.6 % (0-4); Lymphocytes # 0.7 K/mcL (0.6-4.6); Lymphocytes % 10.1 %; Mean Corpuscular HGB Conc 32.7 g/dL (31.6-35.5); Mean Corpuscular Hemoglobin 29.6 pg (28.0-33.3); Mean Corpuscular Volume 90.6 fL (83.0-100.0); Mean Platelet Volume 8.6 fL (9.4-12.4); Monocytes # 0.6 K/mcL (0.0-1.3); Neutrophils # 5.6 K/mcL (1.6-8.9); Platelet Count 268 K/mcL (140-400); Red Blood Count 3.41 M/mcL (3.82-4.97); Red Cell Distribution Width 13.2 % (11.5-14.5); White Blood Count 6.9 K/mcL (4.3-11.1)
[2019-08-03 05:35] LABS: Potassium 3.7 mEq/L (3.5-5.1)
[2019-08-03 06:11] LABS: BUN/Creatinine Ratio 22 (6-26); Blood Urea Nitrogen 13 mg/dL (8-23); Calcium 8.1 mg/dL (8.6-10.3); Carbon Dioxide 25 mEq/L (23-29); Chloride 101 mEq/L (98-107); Glucose 127 mg/dL (70-105); Magnesium 1.8 mg/dL (1.6-2.6); Osmolality,Calculated 276 (280-300); Sodium 132 mEq/L (136-145); eGFR For African Americans > 60 (> 60); eGFR For Non-African Americans > 60 (> 60)
[2019-08-03] MEDS: Levothyroxine 25 MCG TABLET PO SCH (06:31)
[2019-08-03] MEDS: *HR* Heparin 5,000 UNIT/ML VIAL SQ SCH (06:32)
[2019-08-03] MEDS: Loratadine 10 MG TABLET PO SCH (08:54)
[2019-08-03] MEDS: hydrALAZINE 10 MG TABLET PO SCH (08:54)
[2019-08-03] MEDS: predniSONE 20 MG TABLET PO SCH (08:54)
[2019-08-03] MEDS: Multivit/Ca/Min/Fe/FA 1 TAB TABLET PO SCH (08:54)
[2019-08-03] MEDS: Artificial Tears SOLN 15 ML BOTTLE RIGHT EYE SCH (08:55)
[2019-08-03] MEDS: PrednisoLONE Acetate 1% Opth 5 ML BOTTLE RIGHT EYE SCH (08:55)
[2019-08-03] MEDS: amLODIPine 5 MG TABLET PO SCH (08:55)
[2019-08-03] MEDS ORDERED: Potassium Chloride Elixir 20 MEQ/15 ML UDC PO SCH (09:00)
[2019-08-03] MEDS: Budesonide Neb 0.5 MG/2 ML IH SCH (10:37)
[2019-08-03 11:53] VITALS: BP 144/76
== END 2019-08-03 17:00 | disposition home or self-care (01) ==
LOC: SUATTDRO → EMEROOARM 14:02 → 3BNU 14:02 → SUATTDRO 20:35 → 3BNU 21:05
PROVIDERS: ADMIT Pharmacist; ATTEND Pharmacist